=== PATIENT | male | born 1990 | race Caucasian/White ===

== ENCOUNTER 2017-04-12 09:57 | Emergency (ER) | payer OTHER ==
[~2017-04-12] VITALS: Ht 172.7 cm; Wt 70.9 kg
[2017-04-12 10:03] VITALS: TEMP 36.8; Ht 172.7 cm; Wt 70.9 kg
[2017-04-12 10:41] LABS: BASO % 0.2 %; BASO ABS # 0.02 K/uL (0-0.2); COMPLETE YES; HEMATOCRIT 48.1 % (42-52); IG% 0.3 %; LYMPH % 19.8 %; LYMPH ABS # 2.32 K/uL (1.2-3.4); MEAN CELL VOLUME 88.3 fL (80-100); MEAN CORPUSCULAR HEMOGLOBIN 31.4 pg (25-34); MEAN CORPUSCULAR HGB CONC 35.6 g/dl (32-36); MEAN PLATELET VOLUME 11.3 fL (7.4-10.4); NEUT % 67.7 %; PLATELET COUNT 236 K/uL (130-400); RED BLOOD COUNT 5.45 M/uL (4.7-6.1); WHITE BLOOD COUNT 11.74 K/uL (4.8-10.8)
[2017-04-12] MEDS ORDERED: ONDANSETRON INJ 2 MG/ML 2 ML VIAL IV STA (10:52)
[2017-04-12] MEDS ORDERED: SODIUM CHLORIDE 0.9% 1000ML 1,000 ML IV STA (10:52)
[2017-04-12 10:53] LABS: BUN/CREATININE RATIO 7.9 (10-20); CALCIUM 9.3 mg/dl (8.5-10.1); CREATININE 1.2 mg/dl (0.60-1.40); POTASSIUM 3.5 mmol/L (3.5-5.1)
--- NOTE | 2017-04-12 11:59 | DIAGNOSTIC IMAGING REPORT ---
CHEST ONE VIEW PORTABLE HISTORY: Right upper quadrant abdominal pain. COMPARISON: Chest 05/25/2015. FINDINGS: The lungs are clear. Cardiac silhouette is normal in size. No pleural effusions. No pneumothorax. IMPRESSION: No acute process. Electronically signed by: Donte Monae M.D. 04/12/2017 11:58 AM Dictated Date/Time: 04/12/2017 11:56 AM
[2017-04-12 12:22] LABS: URINE APPEARANCE CLEAR (CLEAR); URINE BILIRUBIN NEG (NEG); URINE COLOR YELLOW; URINE EPITHELIAL CELL AUTO 0-5 /lpf (0-5); URINE NITRITE NEG (NEG); URINE PH 7.5 (4.5-7.5); UROBILINOGEN NEG (NEG); ZZUR CULT IF INDIC CLEAN CATCH NO
[2017-04-12 12:32] LABS: REVIEW REQ? NO
[2017-04-12 12:33] LABS: MANUAL MICROSCOPIC REQUIRED? NO
--- NOTE | 2017-04-12 14:43 | DIAGNOSTIC IMAGING REPORT ---
ABDOMINAL ULTRASOUND, RIGHT UPPER QUADRANT HISTORY: Right upper quadrant abdominal pain.. COMPARISON: Abdomen and pelvis CT 11/25/2014. FINDINGS: Pancreas: The pancreas demonstrates a normal echotexture. Liver: Unremarkable. Gallbladder: No gallbladder wall thickening. No gallstones. CBD: 3 mm. Right kidney: No hydronephrosis. IMPRESSION: No significant abnormality identified within the right upper quadrant. Electronically signed by: Donte Monae M.D. 04/12/2017 2:42 PM Dictated Date/Time: 04/12/2017 2:41 PM
[2017-04-12] MEDS ORDERED: FAMO20TA11 PO (15:00)
[2017-04-12 15:21] VITALS: BP 137/84; PULSE 58; O2SAT 98
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
== END 2017-04-12 15:20 | disposition home or self-care (01) ==
LOC: C.EDB 09:58 → C.EDC 15:20
DX: R10.11 Right upper quadrant pain (principal); Z82.49 Family history of ischemic heart disease and other diseases of the circulatory system; F17.210 Nicotine dependence, cigarettes, uncomplicated; C46.9 Kaposi's sarcoma, unspecified; K58.9 Irritable bowel syndrome, unspecified

== ENCOUNTER 2022-02-09 03:29 | Inpatient (IN) ==
[2022-02-09] MEDS ORDERED: LIDOCAINE 2%/EPINEPHRINE 1:100,000 20ML INFIL ONE (03:42)
[2022-02-09] MEDS ORDERED: DIPHTHERIA/TETANUS/PERTUSSIS 0.5 ML SYR/VIAL IM ONE (03:42)
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
[2022-02-09] MEDS ORDERED: AMPICILLIN/SULBACTAM SOD 1,500 MG in 0.9 % SODIUM CHLORIDE 100 ML IV STA ×2 (04:21→04:33)
[2022-02-09] MEDS ORDERED: ACETAMINOPHEN 1,000 MG/100 ML VIAL IV STA (04:54)
[2022-02-09] MEDS ORDERED: SODIUM CHLORIDE 0.9% 1000ML 1,000 ML IV ONE (04:54)
[2022-02-09 05:40] LABS: Basophils # (auto) 0.01 K/uL (0-0.2); Basophils % (auto) 0.1 %; Eosinophils # (auto) 0.07 K/uL (0-0.5); Eosinophils % (auto) 0.8 %; Hematocrit (blood only) 42.2 % (42-52); Hemoglobin 14.5 g/dL (14.0-18.0); Immature Granulocytes # (auto) 0.03 K/uL (0.00-0.02); Immature Granulocytes % (auto) 0.4 %; Lymphocytes # (auto) 0.84 K/uL (1.2-3.4); Mean Corpuscular Hemoglobin 31.3 pg (25-34); Mean Corpuscular Hgb Conc 34.4 g/dL (32-36); Mean Corpuscular Volume 91.1 fL (80-100); Mean Platelet Volume 10.2 fL (7.4-10.4); Monocytes % (auto) 11.9 %; Neutrophils # (auto) 6.46 K/uL (1.4-6.5); Neutrophils % (auto) 76.8 %; Platelet Count 239 K/uL (130-400); RDW Coefficient of Variation 13.2 % (11.5-14.5); RDW Standard Deviation 43.8 fL (36.4-46.3); Red Blood Count 4.63 M/uL (4.7-6.1); White Blood Count 8.41 K/uL (4.8-10.8)
[2022-02-09 06:18] LABS: Alanine Aminotransferase 57 U/L (7-52); Albumin Globulin Ratio 1.6 (0.9-2); Albumin Level 4.4 gm/dl (3.4-5.0); Alkaline Phosphatase 45 U/L (34-104); Anion Gap 12 (3-11); Aspartate Aminotransferase 99 U/L (13-39); BUN Creatinine Ratio 11.3 (10-20); Bilirubin,Total 0.5 mg/dl (0.2-1.0); Blood Urea Nitrogen 11 mg/dl (6-23); Calcium 9.1 mg/dl (8.5-10.1); Carbon Dioxide 25 mmol/L (21-32); Chloride 104 mmol/L (98-107); Est GFR (African American) 119.2 ml/min; Est GFR (Non-African American) 102.9 ml/min; Globulin 2.8 gm/dl (2.5-4.0); Glucose 98 mg/dl (70-99(Fasting)); Potassium 3.4 mmol/L (3.5-5.1); Sodium 141 mmol/L (136-145); Total Protein 7.2 gm/dl (6.0-8.3)
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
[2022-02-09] MEDS ORDERED: MoRPHine SULFATE 2 MG/ML CARP IV PRN (09:23)
[2022-02-09] MEDS ORDERED: ONDANSETRON INJ 2 MG/ML 2 ML VIAL IV PRN ×2 (09:23→18:07)
[2022-02-09] MEDS ORDERED: MoRPHine SULFATE 4 MG/ML 1 ML CARP\\VIAL IV PRN (09:23)
[2022-02-09] MEDS ORDERED: oxyCODONE/ACETAMINOPHEN 5mg/325mg TAB PO PRN (09:23)
[2022-02-09] MEDS ORDERED: CHLORHEXIDINE GLUCONATE 0.12% 480 ML MT PRN (10:17)
[2022-02-09] MEDS ORDERED: LORazepam 1 MG in SYRINGE 0.5 ML IV PRN (10:20)
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
[2022-02-09] MEDS: KETOROLAC 30 MG/ML VIAL IV PRN (13:12)
[2022-02-09] MEDS: AMPICILLIN/SULBACTAM SOD 1,500 MG in 0.9 % SODIUM CHLORIDE 100 ML IV SCH ×2 (13:22→18:02)
[2022-02-09] MEDS ORDERED: D5W AND NSS 1,000 ML IV SCH (16:45)
--- NOTE | 2022-02-09 17:48 | Anesthesiology Consultation ---
Date of Service February 09, 2022 Assessment & Plan (1) Encounter for pre-operative examination: Chart Review Chart Review: Acceptable Risk for Surgery and Patient NOT seen in Pre Admission Testing Consults Requested none History Surgery Operation Date: 02/09/22 11:20 Proposed Procedures p Open Reduction Internal Fixation Jaw Fracture - Arnold Lechuga, DMD Height/Weight Height: 5 ft 8 in Weight: 73.2 kg Allergies Allergy/AdvReac Type Severity Reaction Status Date / Time No Known Allergies Allergy Unverified 02/09/22 11:28 Medications Home Medications Medication Instructions Recorded Confirmed Last Taken Pre Workout Drink 1 dose PO .WITH WORKOUTS 02/09/22 02/09/22 Unknown amoxicillin 875 mg-potassium 1 tab PO BID 7 Days #14 tab 02/09/22 Unknown clavulanate 125 mg tablet Active Medications Generic Name Dose Route Start Last Admin Trade Name Freq PRN Reason Stop Dose Admin Ampicillin Sodium/Sulbactam 104 mls @ 200 mls/hr 02/09/22 12:30 02/09/22 13:54 Sodium 1,500 mg/ Sodium IV 02/16/22 12:29 Infused Chloride Q6H GAVINO Infusion Protocol Dextrose/Sodium Chloride 1,000 mls @ 125 mls/hr 02/09/22 16:45 02/09/22 17:47 D5w And Nss IV 03/11/22 16:44 0 mls/hr .Q8H GAVINO Infusion Ketorolac Tromethamine 30 mg 02/09/22 09:23 02/09/22 13:12 Ketorolac 30 Mg/Ml Vial IV 02/14/22 09:22 30 mg Q6H PRN Administration Pain & Pre PT Morphine Sulfate 4 mg 02/09/22 09:23 02/09/22 09:45 Morphine Sulfate 4 Mg/Ml 1 Ml Carp\Vial IV 02/23/22 09:22 4 mg Q3H PRN Administration Pain (6,7,8,9,10) NPO Date Last Intake of Fluids: 02/09/22 Time Last Intake of Fluids: 12:00 Date Last Intake of Solids: 02/09/22 Time Last Intake of Solids: 12:00 Past Medical History Medical History No pertinent past medical history Past Surgical History Surgical History No pertinent past surgical history Social History Smoking Status: Current every day smoker tobacco type: pipe Do You Dip or Chew Tobacco: No Hx Alcohol Use: Yes Alcohol type: beer, wine and hard liquor alcohol intake frequency: a few times a week Hx Substance Use: No Physical Exam Vital Signs Last Vital Signs Temp 98.4 F 02/09/22 12:22 Pulse 72 02/09/22 12:22 Resp 20 02/09/22 12:22 BP 125/77 02/09/22 12:22 Pulse Ox 95 02/09/22 12:22 Testing Laboratory Results 02/09/22 05:15 02/09/22 05:15
[2022-02-09] MEDS ORDERED: ATROPINE SULFATE 0.1 MG/ML 10ML SYR IV PRN (18:07)
[2022-02-09] MEDS ORDERED: ePHEDrine sulfate 50 MG/ML AMP IV PRN (18:07)
[2022-02-09] MEDS ORDERED: fentaNYL citrate 100 MCG/2 ML VIAL IV PRN (18:07)
[2022-02-09] MEDS ORDERED: BUPIVACAINE/EPINEPHRINE 0.5% 1:200,000 1.8 ML CARP ONE (18:08)
[2022-02-09] MEDS ORDERED: LIDOCAINE/EPINEPHRINE 1.7 ML CTR ONE (18:08)
[2022-02-09] MEDS ORDERED: TRIAMCINOLONE ACET 0.1% OINT 15 GM TUBE ONE (18:08)
[2022-02-09] MEDS ORDERED: OXYMETAZOLINE 0.05% 30 ML BTL ONE (18:15)
[2022-02-09] MEDS ORDERED: LIDOCAINE 5% OINT 30 GM TUBE ONE (18:15)
[2022-02-09] MEDS ORDERED: ACETAMINOPHEN 1000 MG/100 ML IV IV ONE (18:20)
[2022-02-09] MEDS ORDERED: MIDAZOLAM HCL 1 MG/ML 2ML VIAL ONE (18:22)
[2022-02-09] MEDS ORDERED: fentaNYL citrate 100 MCG/2 ML VIAL ONE ×2 (18:22)
[2022-02-09] MEDS ORDERED: ROCURONIUM BROMIDE 10 MG/ML 5 ML VIAL IV ONE (19:56)
[2022-02-09] MEDS ORDERED: ONDANSETRON INJ 2 MG/ML 2 ML VIAL ONE (19:56)
[2022-02-09] MEDS ORDERED: NEOSTIGMINE METHYLSULFATE 1 MG/ML 10ML VIAL ONE (19:56)
[2022-02-09] MEDS ORDERED: LIDOCAINE 2% 2 ML VIAL/AMP(20MG/ML) INFIL ONE (19:56)
[2022-02-09] MEDS ORDERED: GLYCOPYRROLATE 0.2 MG/ML VIAL ONE (19:56)
[2022-02-09] MEDS ORDERED: PROPOFOL IV EMULSION 10 MG/ML 20 ML VIAL IV ONE (19:56)
[2022-02-09] MEDS ORDERED: DEXAMETHASONE SOD INJ 4 MG/ML VIAL ONE (19:56)
--- NOTE | 2022-02-09 21:25 | Post Operative Brief Note ---
PG Immediate Post Op with CF Date of Surgery February 09, 2022 Pre & Post Diagnosis Operation Date: 02/09/22 11:20 Pre-Op Diagnosis: Fracture of Lower Jaw Post-Op Diagnosis: Fracture of Lower Jaw I identified the patient and participated in the time-out.: Yes Procedure Operation Date: 02/09/22 11:20 Actual Procedures p Open Reduction Internal Fixation Mandibular Fracture with ALEKS Lopez Hybrid Arch Bar and Plates - Arnold Lechuga DMD Surgeon Arnold Lechgua, TERRANCE Insole Beveler none Estimated Blood Loss 300 Findings Consistent with Post-Op Diagnosis severe fracture of the bilateral lower jaw and symphysis fractured teeth Anesthesia Type General Complications none
--- NOTE | 2022-02-09 21:53 | Anesthesiology Progress Note ---
Date of Service February 09, 2022 Anesthesia Post Procedure Vital Signs Vital Signs: Temp Pulse Pulse Pulse Resp BP BP 02/09/22 21:45 98.1 F 85 14 02/09/22 21:35 96 H 23 02/09/22 21:29 97.3 F L 104 H 16 02/09/22 17:54 99.0 F 82 16 150/90 H 02/09/22 12:22 98.4 F 72 20 125/77 02/09/22 11:41 82 18 128/74 02/09/22 11:00 84 18 02/09/22 09:00 86 17 02/09/22 07:00 98.1 F 84 18 02/09/22 05:37 85 20 02/09/22 03:32 98.1 F 80 18 113/64 BP Pulse Ox 02/09/22 21:45 162/105 H 92 02/09/22 21:35 170/106 H 92 02/09/22 21:29 167/104 H 95 02/09/22 17:54 98 02/09/22 12:22 95 02/09/22 11:41 96 02/09/22 11:00 137/72 97 02/09/22 09:00 158/89 H 96 02/09/22 07:00 134/82 98 02/09/22 05:37 137/81 98 02/09/22 03:32 96 Pain Intensity Face: Pain Intensity: 5 Transfer of Care Handoff Completed per policy Notes Mental Status: alert / awake / arousable and participated in evaluation Patient Amnestic to Procedure: Yes Nausea / Vomiting: adequately controlled Pain: adequately controlled Airway Patency, RR, SpO2: stable & adequate BP & HR: stable & adequate Hydration State: stable & adequate Anesthetic Complications: no major complications apparent and Pt Satisfied with anesthetic care
[2022-02-09] MEDS ORDERED: ACETAMINOPHEN/HYDROcodone ELIX 15 ML/CUP PO PRN (22:10)
[2022-02-09] MEDS: D5W AND 1/4NSS + 20MEQ KCL 20 MEQ/1,000 ML BAG IV SCH (22:16)
[2022-02-10] MEDS: AMPICILLIN/SULBACTAM SOD 1,500 MG in 0.9 % SODIUM CHLORIDE 100 ML IV SCH ×2 (00:09→05:48)
[2022-02-10] MEDS: D5W AND 1/4NSS + 20MEQ KCL 20 MEQ/1,000 ML BAG IV SCH ×2 (03:37→07:48)
[2022-02-10] MEDS: KETOROLAC 30 MG/ML VIAL IV PRN (07:48)
--- NOTE | 2022-02-10 08:52 | XRay Report ---
MANDIBLE 4 VIEWS CLINICAL HISTORY: Postoperative examination. FINDINGS: AP and crosstable lateral views of the mandible are correlated with facial bone CT dated 02/09/2022. The skeletal structures are well mineralized. Again seen are bilateral mandibular ramus fract ures, as well as fracture of the left mandibular body. There are small buttress plates seen along the anterior aspect of the maxilla and mandible. Cerclage wires are also seen projecting over the anteri or maxillary teeth. The orthopedic hardware appears intact. Near-anatomic alignment is maintained. Th e temporomandibular joints appear anatomically aligned. IMPRESSION: Mandibular fractures and postoperative change as above. Electronically signed by: Moise Mcginnis M.D. 02/10/2022 8:51 AM
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
--- NOTE | 2022-02-10 10:11 | Oral/Maxillofacial Consult ---
Date of Consultation February 10, 2022 History of Present Illness Attending Physician: Arnold Lechuga DMD History of Present Illness surgery post op note at 10 am February 10 2022 OK for Discharge after the CT is completed I reviewed home care and diet. Excellent result, Sutures in place, elastics in place with stable occlusion Tissue tone, gingival tissue--excellent Occlusion very stable and stable fixation noted Reviewed use of functional elastics - to remain in place until I see him on 02-16-22 at 1 pm No nasal congestion, bleeding, septum well positioned. No sinus issues Facial alignment excellent Reviewed post op care--diet, oral care, use of elastics, activities. Rx- Lortab liquid, Liquid Augmentin, Peridex, Zofran. Post op CT pending. OK for D/C today Follow up on February 16 2022 Overall excellent result from recent OG surgery RTC for continued follow up Allergies Allergy/AdvReac Type Severity Reaction Status Date / Time No Known Allergies Allergy Unverified 02/09/22 11:28 Home Medications Medication Instructions Recorded Confirmed Type Pre Workout Drink 1 dose PO .WITH WORKOUTS 02/09/22 02/09/22 History amoxicillin 875 mg-potassium 1 tab PO BID 7 Days #14 tab 02/09/22 Rx clavulanate 125 mg tablet amoxicillin 400 mg-potassium 11 ml PO BID 10 Days #220 ml 02/10/22 Rx clavulanate 57 mg/5 mL oral suspension chlorhexidine gluconate 0.12 % 15 ml MUCOUS MEMBRANE BID #473 ml 02/10/22 Rx mouthwash (Peridex) hydrocodone 7.5 mg-acetaminophen 15 ml PO Q4H PRN #250 ml 02/10/22 Rx 325 mg/15 mL oral solution ondansetron HCl 8 mg tablet 8 mg PO Q8H PRN #10 tab 02/10/22 Rx Patient History Medical History (Updated 02/09/22 @ 17:48 by Romel Yeung DO) No pertinent past medical history Surgical History (Updated 02/10/22 @ 09:29 by Kathleen Anaya RN) History of mandibular surgery (02/10/22) Open Reduction Internal Fixation Mandibular Fracture with ALEKS Lopez Hybrid Arch Bar and Plates - Arnold Lechuga DMD No pertinent past surgical history Social History Smoking Status: Current every day smoker Tobacco Type: Pipe Second Hand Exposure: No; Do You Dip or Chew Tobacco: No; Tobacco Cessation Education Requested by Patient: No Hx Alcohol Use: Yes Alcohol type: beer, wine and hard liquor Hx Substance Use: No Preferred Language: Bulgarian Communication Ability: Effective Application Programmer Analyst Required: No Beliefs That Will Affect Care: None Current Living Situation: Other Current Living Situation Comment: Lives with a roomate Other Information That Helps Us Care for You: No Feels Safe at Home: Yes Safety Concerns: Feels Safe At This Time Assistive Devices: None Results & Data ([facility]) Vital Signs (Past 12 Hours) Vital Signs Temp Pulse Resp BP Pulse Ox 02/10/22 07:38 37.0 C 94 H 18 150/74 H 96 02/10/22 03:04 37.6 C H 106 H 18 149/83 H 95 02/10/22 01:19 37.4 C 88 18 138/81 95 02/10/22 00:10 37.5 C 84 18 148/78 H 95 02/09/22 23:11 37.6 C H 87 18 158/93 H 93 02/09/22 22:40 37.8 C H 72 18 160/91 H 93 PG Care Time/CCT Total # of Minutes Spent Total Time Spent with Patient: Total time spent is greater than 50% in coordination of care (as documented) at patient's floor/unit and/or counseling patient: Coding Level of Care Code None
--- NOTE | 2022-02-10 11:39 | CT Scan Report ---
CT SCAN OF THE FACIAL BONES WITHOUT IV CONTRAST CLINICAL HISTORY: Postoperative examination. Facial bone fractures. COMPARISON STUDY: Facial bone CT dated 02/09/2022. TECHNIQUE: High-resolution CT scan of the facial bones is performed. Images are reviewed in the axia l, sagittal, and coronal planes. IV contrast was not administered for this examination. A dose lower ing technique was utilized adhering to the principles of ALARA. CT DOSE: 676.03 mGy.cm FINDINGS: The skeletal structures are well mineralized. Again seen are acute bilateral fractures of t he mandibular ramus below the mandibular condyles, with comminution on the right and mildly displaced fragments. There is also a mildly displaced fracture through the left mandibular body to the left of midline status post partial plate fixation. The orthopedic hardware appears intact. Fragments are mi ldly displaced and the largest fragments are offset by up to 2.5 mm. This is best seen on axial image #82. Fracture extends through the socket of the left lateral incisor. There is periapical lucency ar ound the left lateral mandibular incisor, and there are wires around left mandibular teeth. Again see n is fracture of the anterior alveolar ridge of the maxilla centered over the left central incisor. T here are small displaced fragments, as well as periapical lucency around the left central incisor of the maxilla. There at been buttress plate fixation along the anterior maxilla, with cerclage wires ar ound the anterior maxillary teeth. Again seen is fracture of the second most posterior right maxillar y molar on axial image #176. A defect in the posterior aspect of the second most posterior left maxil nikita molar is seen at an site of dental fracture. The fractured fragment is no longer present. Soft t issue edema overlies the maxilla and mandible. The temporomandibular joints are maintained. Lucencies through the anterior nasal spine of the maxilla are age indeterminant and may be chronic. No new fac ial bone fracture is seen. The bony orbits are intact and the orbital contents are within normal limi ts. The zygomatic arches, nasal bones, and pterygoid plates are preserved. There are no layering bloo d products within the paranasal sinuses. Trace mucosal thickening is noted in the maxillary antra. Th e remaining paranasal sinuses are clear. The mastoid air cells are well pneumatized. The visualized c alvarium and upper cervical spine are maintained. Partially imaged brain parenchyma is within normal limits. Shotty cervical lymph nodes are incidentally noted. IMPRESSION: 1. Maxillary, mandibular, and dental fractures with associated postoperative change as detailed above . 2. The orthopedic hardware appears intact. 3. No new fracture is seen. ACT 112: Negative or not required by law. Electronically signed by: Moise Mcginnis M.D. 02/10/2022 11:37 AM
--- NOTE | 2022-02-13 19:16 | Operative Report ---
PG Post Operative Report Pre & Post Diagnosis Operation Date: 02/09/22 11:20 Pre-Op Diagnosis: Fracture of Lower Jaw Post-Op Diagnosis: Fracture of Lower Jaw I identified the patient and participated in the time-out.: Yes Procedure Operation Date: 02/09/22 11:20 Actual Procedures p Open Reduction Internal Fixation Mandibular Fracture with KLS John Hybrid Arch Bar and Plates - Arnold Lechuga DMD S02.66XB CPT 99347----Rajxgol open fracture of the mandible-symphysis, bilateral subcondylar S01.81XA CPT 66353----Mddydujkhadw deep laceration 3 cm Chin area open reduction of complex mandibular fracture intermediate closure of 3cm deep wound of anterior mandibular (chin ) Surgeon Arnold Lechuga DMD Market Research Associate none Estimated Blood Loss 300 Findings Consistent with Post-Op Diagnosis Specimens none Anesthesia Type General Indications fracture of the mandibular symphysis and bilateral subcondylar areas Description of Procedure S02.66XB CPT 38666----Mokktke open fracture of the mandible-symphysis, bilateral subcondylar S01.81XA CPT 68860----Jfyjfyiouylk deep laceration 3 cm Chin area open reduction of complex mandibular fracture intermediate closure of 3cm deep wound of anterior mandibular (chin ) Description of Procedure Once cleared for surgery general anesthesia was achieved, the eyes were protected by the anesthesia dept criteria.. A time out was take for patient ID, antibiotics, equipment and position verification once all agreed the procedure began. Local anesthesia was given into each area using Marcaine with a vasoconstrictor ( 1.8 ml per site). A throat pack was placed after the oral cavity was irrigated with saline. Once a surgical level of anesthesia was obtained and the local anesthesia was given time for the blocks the surgery was started. ADMITTING DIAGNOSES: Displaced mandibular fracture right and left subcondylar and symphysis (lateral left side) fracture OPERATION: Application of skeletal fixated arch bars KLS Hybrid arch bar system Open reduction of anterior symphysis fracture Closed reduction of the mandibular fracture Repair of deep complex chin laceration (temporally closed in ER) OPERATION IN DETAIL: After this patient was cleared to undergo general, The patient was placed under general anesthesia via a nasotracheal intubation. After an appropriate time-out was taken to ensure that we hadJason Genoveva in our operating room with the proper equipment. After everyone agreed, the operation began. The patient was deeply anesthetized and the tubes were secured. The patient was prepped and draped in the usual manner. Given the nature of the fracture a closed approach will be used due to the position of the nondislocated left and right subcondylar fracture and an open approach for the symphysis fracture to insure position and stability. Skeletal fixated arch bars was placed on the upper teeth with 6 mm x 2 mm self drilling screws-the arch bars were very secure and stable. as a result of the accident tooth # 9 was avulsed and the patient replanted in his mouth immediately. Teeth number 6,7,8,10,11 and 14 were fractured. # 9 and 14 have guarded prognosis. To stabilize # 9 a 25 wire was used in a periodontal splinting fashion to stabilize this tooth--this was done before the arch bar was placed on the upper jaw. There was a bone fracture between teeth #21-22 A 25 SSW was looped around the teeth and this stabilized the fracture somewhat. It was noted that Gautam had a shanice on the lingual of the mandible, the fracture went through the shanice in a tangental manner, similar to a sagittal split osteotomy Placement of skeletal fixated arch bars Upper teeth: Local anesthesia in the form of Marcaine with a vasoconstrictor, approximately 6 carpules of the local anesthesia were injected. Using a KLS John L1 Hybrid 7 hole plate on the upper using appropriate screws placed in the interproximal bone to avoid the roots of the teeth. Open reduction of the anterior mandible with plate fixation and placement of skeletal fixated arch bars I removed the sutures placed in the ER. The laceration was extended laterally and deep. The mentalis muscle was incised as was the periosteum. I now encountered the fracture. I was able to stabilize the fracture with digital pressure. Now using a 2 mm KLS John plate and 7 mm screws I was able to passively bend the place across the fracture line. I place 2 screws to lightly fixate the fracture while I placed the KLS John arch bar to the lower arch. Using a KLS John L1 Hybrid 7 hole plate on the lower using appropriate screws placed in the interproximal bone to avoid the roots of the teeth the lower arch bar was secured. I now placed the jaws into an ideal fixated position with wires as I secured the bone plate at the symphysis with the 7 mm screws. The bones were lined up and the occlusion was stable. I noted that tooth # 32 was fractured and I removed this tooth. As a result of the fracture there was a lateral segment of bone on the left lingual area that perforated the mucosa. I was able to trim the sharp edge and made it level with the mucosa. The tissue will granulate over this exposed laceration of the very thin gingival tissue Closure: I now irrigated the deep wound. closure was in layers with 4 0 Vicryl for the periosteum and muscle layer. The skin was closed with a 5-0 nylon. A dressing was placed. Completion of the case I removed the throat packs, irrigated the oral cavity as well as the surgical site and suctioned it dry I was able to carefully place the mandible into proper inter-dental relationship with the maxilla. The occlusion was very stable and there was excellent stability of the bite. With tracey pressure the occlusion was well established. With the use of elastics the jaw was placed into an excellent position to re established the occlusion. The mandibular fracture was extremely stable and in the ideal dental position. Recovery Phase: At this time the sponge and instruments count was correct. The patient was allowed to recover in the usual manner and then once fully recovered moved to the recovery room, Post op plans: My plan is to keep the patient in a fixated positioning for the next 4-5 weeks to allow for bony healing. At this time I will allow early function and use of elastics for another 2-3 weeks. Once the fracture is healed I will remove the screws/wires and arch bars. Outcome: Transported in stable condition to post anesthesia recovery area. The patient tolerated the surgical procedure and anesthesia extremely well and I anticipate an uneventful postoperative course. Post op X Rays show good position (anatomic) of the fracture segments. Arnold Lechuga DMD I attest to the content of the Intraoperative Record and any orders documented therein. Any exceptions are noted below.
== END 2022-02-10 12:27 | disposition home or self-care (01) | DRG 142 ==
LOC: ED 03:29 → 3N 09:25